=== PATIENT | female | born 1975 | race Caucasian/White ===

== ENCOUNTER 2017-12-12 14:40 | Emergency (ER) | payer SELFPAY ==
[~2017-12-12] VITALS: Ht 160 cm; Wt 57.6 kg
[2017-12-12 14:47] VITALS: Ht 160 cm; Wt 57.6 kg
[2017-12-12 15:19] VITALS: BP 145/85
== END 2017-12-12 15:19 | disposition home or self-care (01) ==
LOC: ED 14:40
DX: K04.7 Periapical abscess without sinus (principal)

== ENCOUNTER 2020-03-30 01:20 | Emergency (ER) | payer OTHER ==
[~2020-03-30] VITALS: Ht 154.9 cm; Wt 60.8 kg
[2020-03-30 01:29] VITALS: Ht 154.9 cm; Wt 60.8 kg
[2020-03-30 02:56] VITALS: BP 119/76
== END 2020-03-30 02:56 | disposition home or self-care (01) ==
LOC: ED 01:20
DX: M70.811 Other soft tissue disorders related to use, overuse and pressure, right shoulder (principal); Y93.89 Activity, other specified